=== PATIENT | male | born 1985 | race Two or more races ===

== ENCOUNTER 2023-12-16 04:01 | Day surgery (SDC) | payer OTHER ==
[2023-12-12 12:17] VITALS: BMI 32.3
[2023-12-16] MEDS ORDERED: FENTANYL CITRATE/PF 50 MCG/ML VIAL ONE ×2 (12:26→13:32)
[2023-12-16] MEDS ORDERED: MIDAZOLAM HCL 2 MG/2 ML SINGLE DOSE VIAL ONE (12:26)
[2023-12-16] MEDS ORDERED: SODIUM CHLORIDE 0.9% P/F 10 ML VIAL IJ ONE (12:27)
[2023-12-16] MEDS ORDERED: ceFAZolin SODIUM 1 GM VIAL ONE (12:27)
[2023-12-16] MEDS: ceFAZolin SODIUM 1 GM VIAL IVPB ONE (12:36)
[2023-12-16] MEDS ORDERED: GLYCOPYRROLATE 0.2 MG/1 ML VIAL ONE (12:36)
[2023-12-16] MEDS ORDERED: KETOROLAC TROMETHAMINE 30 MG/1 ML VIAL ONE (13:07)
[2023-12-16] MEDS ORDERED: DEXAMETHASONE SOD PHOSPHATE 4 MG/1 ML VIAL ONE (13:07)
[2023-12-16] MEDS ORDERED: ONDANSETRON 4 MG/2 ML VIAL ONE (13:07)
[2023-12-16] MEDS ORDERED: LIDOCAINE HCL/PF 2% SDV 5ML VIAL ONE (13:28)
[2023-12-16] MEDS ORDERED: oxyCODONE HCL 5 MG TABLET PO PRN (14:08)
[2023-12-16] MEDS ORDERED: PROMETHAZINE HCL 25 MG/1 ML VIAL IVPB PRN (14:08)
[2023-12-16] MEDS ORDERED: ONDANSETRON 4 MG/2 ML VIAL IVPUSH PRN (14:08)
[2023-12-16] MEDS ORDERED: LACTATED RINGERS SOLUTION 1,000 ML IV SCH (14:15)
[2023-12-16 14:42] VITALS: RESP 16
[2023-12-16 16:22] VITALS: BP 130/86; PULSE 60; TEMP 97.1
== END 2023-12-16 16:07 | disposition home or self-care (01) ==
LOC: JASU-SURG 04:01
PROVIDERS: ATTEND Urology
PROC: 0VBQ0ZZ Excision of Bilateral Vas Deferens, Open Approach (ICD-10-PCS; principal; 2023-12-16 11:00)
DX: Z30.2 Encounter for sterilization (principal)
CPT/HCPCS: 88302-TC; 94760